=== PATIENT | male | born 1970 | race Caucasian/White ===

== ENCOUNTER 2018-09-03 16:49 | Emergency (ER) | payer MEDICAID ==
[2018-09-03 17:05] VITALS: BP 128/77
--- NOTE | 2018-09-03 17:22 | EDPHY ---
H & P Stated Complaint: superficail skin lacs from naty leonie wire to ankle Time Seen by Provider: 09/03/18 17:21 - Personal History Current Tetanus Diphtheria and Acellular Pertussis (TDAP): Unsure Tetanus Vaccine Date: < 10 YEARS - Medical/Surgical History Hx Asthma: No Hx Chronic Respiratory Disease: No Hx Diabetes: No Hx Cardiac Disease: No Hx Renal Disease: No Hx Alcoholism: No Hx Splenectomy or Spleen Trauma: No Other PMH: HERNIA - Social History Smoking Status: Never smoked Constitutional: Initial Vital Signs Temperature (C) 36.5 C 09/03/18 17:02 Heart Rate 78 09/03/18 17:02 Respiratory Rate 16 09/03/18 17:02 Blood Pressure 128/77 H 09/03/18 17:02 O2 Sat (%) 96 09/03/18 17:02 O2 Delivery Mode Room Air Allergies/Adverse Reactions: No Known Allergies Allergy (Verified 10/11/15 11:02) Home Medications: Medication Instructions Recorded NK [No Known Home Meds] 10/10/15 Medical Decision Making ED Course/Re-evaluation: CHIEF COMPLAINT: Superficial lacerations HISTORY OF PRESENT ILLNESS: The patient is a 47 y/o male complaining of numerous superficial cuts to his right ankle while hiking today. The patient states that his ankle became cut on naty barbed wire while hiking. As he is unsure of his last tetanus vaccination he decided to present to the emergency department to ensure that these cuts are not infected. No fever, red streaking, chest pain, shortness of breath, abdominal pain, urinary or bowel complaints, numbness, paresthesias. REVIEW OF SYSTEMS: A comprehensive 10 system review of systems is otherwise negative aside from elements mentioned in the history of present illness and medical decision making. PHYSICAL EXAM: HR, BP, O2 Sat, RR. Temp noted General Appearance: Alert, well hydrated, appropriate, and non-toxic appearing. Head: Atraumatic without scalp tenderness or obvious injury Eyes: Pupils equal, round, reactive to light and accommodation, EOMI, no trauma , no injection. Ears: Clear bilaterally, no perforation, normal landmarks Nose: Atraumatic, no rhinorrhea, clear. Throat: There is no erythema or exudates, no lesions, normal tonsils, mucus membranes moist. Neck: Supple, 2+ carotid upstroke, nontender, no lymphadenopathy. Respiratory: No retractions, no distress, no wheezes, and no accessory muscle use. Lungs are clear to auscultation bilaterally. Cardiovascular: Regular rate and rhythm, no murmurs, rubs, or gallops. Bilateral carotid, radial, dorsalis pedis, and posterior tibial pulses intact. Good capillary refill all extremities. Gastrointestinal: Abdomen is soft, nontender, non-distended, no masses, no rebound, no guarding, no peritoneal signs. Musculoskeletal: Normal active ROM of all extremities, atraumatic. Neurological: Alert, appropriate, and interactive. The patient has normal DTRs and non-focal cranial nerves, motor, sensory, and cerebellar exam. Skin: Numerous superficial lacerations to the right ankle, no signs of infection. No rashes, good turgor, no nodules on palpation. Past medical history: Hernia Past surgical history: Denies Family history: Denies Social history: Lives in [place], single, employed DIAGNOSTICS/PROCEDURES/CRITICAL CARE TIME: Not indicated DIFFERENTIAL DIAGNOSIS: The differential diagnosis for the patient's ankle injury included but was not limited to laceration, abrasion, cellulitis. MEDICAL DECISION MAKING: The patient is a 47 y/o male presenting with numerous superficial cuts to his right ankle while hiking today. TDap administered as he is unsure of his last tetanus vaccination. There is no sign of infection to the left ankle. The java tech will also clean and apply bacitracin to the superficial lacerations. Return precautions provided; patient is comfortable with this plan. - Data Points Medications Given: Discontinued Medications Diphtheria/Tetanus/Acell Pertussis (Boostrix) 0.5 ml IM .ONCE ONE Stop: 09/03/18 17:26 Last Admin: 09/03/18 17:32 Dose: 0.5 ml Departure - Departure Disposition: Home, Routine, Self-Care Clinical Impression: Superficial laceration Condition: Good Instructions: Laceration (ED), Tdap and Td Vaccines for Adults (ED) Additional Instructions: Return to the Emergency Department for fever, redness, discharge from wound, increasing pain or other worsening of condition. Referrals: Geraldine Shin DO [Primary Care Provider] - As per Instructions Report Scribed for: Tc Rubi Report Scribed by: Lynsey Merchant Date of Report: 09/03/18 Time of Report: 17:26
[2018-09-03] MEDS ORDERED: TDAP ADULT 0.5 ML INJ (BOOSTRIX) IM ONE (17:25)
== END 2018-09-03 17:38 | disposition home or self-care (01) ==
DX: S91.011A Laceration without foreign body, right ankle, initial encounter (principal); Z23 Encounter for immunization; W26.8XXA Contact with other sharp object(s), not elsewhere classified, initial encounter; Y93.01 Activity, walking, marching and hiking; Y92.828 Other wilderness area as the place of occurrence of the external cause; Y99.9 Unspecified external cause status